=== PATIENT | male | born 1965 | race African-American/Black ===

== ENCOUNTER 2019-05-07 08:47 | Emergency (ER) | payer BC, OTHER, SELFPAY ==
[2019-05-07 09:06] LABS: #Eosinphils 0.1 thou/uL (0.0-0.7); #Lymphocytes 2.2 thou/uL (1.20-3.40); #Monocytes 0.5 thou/uL (0.11-0.59); #Neutrophils 4.2 thou/uL (1.40-6.50); %Basophils 0.4 % (0.0-1.0); %Eosinophils 2.1 % (0.0-10.0); %Lymphocytes 31.4 % (21.0-51.0); %Monocytes 7.2 % (0.0-10.0); %Neutrophils 58.9 % (42.0-75.0); Hemoglobin 15.2 g/dL (14.0-18.0); Mean Corpuscular HGB CONC 33.3 g/dL (32.0-36.0); Mean Corpuscular Hemoglobin 28.8 pg (27.0-31.0); Mean Corpuscular Volume 86.5 fL (78.0-98.0); Mean Platelet Volume 7.7 fL (7.4-10.4); Platelet Count 187 thou/uL (130-400); RBC Distribution Width 12.4 % (11.5-14.5); White Blood Cell (WBC) Count 7.1 thou/uL (4.8-10.8)
[2019-05-07 09:27] LABS: ALT (SGPT) 24 U/L (8-55); AST (SGOT) 22 U/L (5-34); Albumin 4.7 g/dL (3.5-5.0); Alkaline Phosphatase 65 U/L (40-150); Anion Gap 14 mmol/L (10-20); BUN (Urea Nitrogen) 11 mg/dL (8.4-25.7); Bilirubin, Total 0.6 mg/dL (0.2-1.2); Calc. Creatinine Clearance 0 mL/min (70-130); Calcium 10.1 mg/dL (7.8-10.44); Carbon Dioxide 27 mmol/L (22-29); Chloride 104 mmol/L (98-107); Estimated GFR-MDRD Greater than 90; Globulin 3.1 g/dL (2.4-3.5); Glucose 97 mg/dL (70-105); Potassium 3.9 mmol/L (3.5-5.1); Protein, Total 7.8 g/dL (6.0-8.3); Sodium 141 mmol/L (136-145)
--- NOTE | 2019-05-07 09:39 | CT ---
CT Brain WO Con: 05/07/2019 9:15 AM CLINICAL HISTORY: History of headache. IMAGING TECHNIQUE: Multiple CT images were obtained of the brain without IV contrast. COMPARISON: None. FINDINGS: Infarct: No acute infarct evident. Hemorrhage: None.. Hydrocephalus: None.. Basal cisterns: Normal.. Cerebral parenchyma: Normal.. Midline shift: None.. Cerebellum: Normal. Brainstem: Normal. OTHER: Calvarium: Intact.. Visualized Paranasal sinuses: Clear.. Extracranial soft tissues:Normal. IMPRESSION: No acute intracranial abnormality.
--- NOTE | 2019-05-07 09:44 | CT ---
CTA of the chest and abdomen utilizing an aortic dissection protocol and 3-D reformatted imaging INDICATION: Chest pain, hypertension and vomiting COMPARISON: None FINDINGS: Aorta: No hemodynamically significant stenosis, occlusion or aneurysmal formation is evident. The keith iac, SMA and renal arteries are widely patent. The EDUARDO is patent. The common iliac arteries are patent. 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 Central pulmonary artery: No central pulmonary embolus demonstrated. Additional thorax findings: There is a 6.5 mm pulmonary nodule within the posterior right lower lobe on image 85 of series 2. Additional abdominal findings: There is fatty infiltration of the liver. The pancreas, adrenal glands and kidneys are normal appearing. The spleen is normal-appearing. No free fluid or enlarged lymph nodes are evident. Osseous structures: No acute fracture or subluxation demonstrated. There is scattered degenerative an d osteoarthritic change present. IMPRESSION: 1. No appreciable aortic stenosis, occlusion or aneurysmal formation demonstrated. 2. 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 3. Right lower lobe pulmonary nodule. Follow-up CT evaluation in 3-6 months is recommended to documen t stability. 4. Fatty liver
--- NOTE | 2019-05-07 09:44 | RAD ---
PORTABLE CHEST 1 VIEW: Date: 05/07/19 Time: 0845 hours HISTORY: Chest pain. FINDINGS: The heart size is normal. The lungs are expanded without focal areas of consolidation, pneumothoraces , or pleural effusions. IMPRESSION: No radiographic evidence of acute cardiopulmonary process. POS: [facility]
[2019-05-07] MEDS ORDERED: Acetaminophen 500 MG TAB ONE (10:07)
[2019-05-07] MEDS ORDERED: diphenhydrAMINE 50 MG/ML VIAL ONE (10:07)
[2019-05-07] MEDS ORDERED: Aspirin Chewable 81 MG TAB ONE (10:07)
[2019-05-07] MEDS ORDERED: Metoclopramide HCl 10 MG/2 ML VIAL ONE (10:07)
[2019-05-07] MEDS ORDERED: Nitroglycerin 2% Ointment 1 INCH/1 GM Packet ONE (10:08)
[2019-05-07] MEDS ORDERED: Nitroglycerin 0.4 MG TAB 1 EACH ONE (10:08)
[2019-05-07 12:39] LABS: Troponin I Less than 0.010 ng/mL (< 0.028)
== END 2019-05-07 13:23 | disposition home or self-care (01) ==
LOC: ERS 08:47
DX: R07.89 Other chest pain (principal); R51 Headache; E78.5 Hyperlipidemia, unspecified; I10 Essential (primary) hypertension; F17.210 Nicotine dependence, cigarettes, uncomplicated
CPT/HCPCS: 36415; 70450; 71045; 71275; 80053; 84484; 85025; 93005; 96365; 96366; 96375; J1200; J2765

== ENCOUNTER 2021-10-27 11:06 | Emergency (ER) | payer BC ==
[2021-10-27] MEDS ORDERED: Xylocaine 1% w/ Epi 1:100K 10 ML VIAL ONE (11:38)
[2021-10-27] MEDS ORDERED: Ketorolac Tromethamine 30 MG/ML VIAL ONE (11:38)
[2021-10-27 12:04] LABS: #Eosinphils 0.1 thou/uL (0.0-0.7); #Lymphocytes 1.8 thou/uL (1.20-3.40); #Monocytes 0.9 thou/uL (0.11-0.59); #Neutrophils 7.8 thou/uL (1.40-6.50); %Basophils 0.1 % (0.0-1.0); %Eosinophils 0.6 % (0.0-10.0); %Lymphocytes 16.6 % (21.0-51.0); %Monocytes 8.8 % (0.0-10.0); %Neutrophils 73.9 % (42.0-75.0); Hemoglobin 13.8 g/dL (14.0-18.0); Mean Corpuscular HGB CONC 31.8 g/dL (32.0-36.0); Mean Platelet Volume 8.1 fL (7.4-10.4); Platelet Count 168 thou/uL (130-400); RBC Distribution Width 12.3 % (11.5-14.5); Red Blood Cell (RBC) Count 4.92 mill/uL (4.70-6.10); White Blood Cell (WBC) Count 10.5 thou/uL (4.8-10.8)
[2021-10-27 12:19] LABS: Anion Gap 11 mmol/L (10-20); BUN (Urea Nitrogen) 8 mg/dL (8.4-25.7); CRP (Inflammatory) 5.73 mg/dL (= or < 0.5); Calc. Creatinine Clearance 0 mL/min (70-130); Calcium 9.4 mg/dL (7.8-10.44); Carbon Dioxide 27 mmol/L (22-29); Chloride 105 mmol/L (98-107); Glucose 100 mg/dL (70-105); Potassium 4.1 mmol/L (3.5-5.1); Sodium 139 mmol/L (136-145)
[2021-10-27 13:32] LABS: RBC Count-Automated (BF) 52525 /cu.mm; WBC/Nucleated-Auto (BF) 19240 /cu.mm
[2021-10-27 14:05] LABS: BF Color Red; Body Fluid Source Synovial Fluid; Clarity Cloudy/Turbid (Clear); Tube # EDTA
[2021-10-27 14:07] LABS: BF Segmented Neutrophils 81 %; Cell Count Non Hematic 16 %; Lymphocytes 3 %
== END 2021-10-27 14:36 | disposition home or self-care (01) ==
LOC: ERS 11:06
DX: M10.061 Idiopathic gout, right knee (principal); I10 Essential (primary) hypertension; E78.5 Hyperlipidemia, unspecified
CPT/HCPCS: 20610; 36415; 80048; 82945; 85025; 85060; 85652; 86140; 87070; 87205; 89051; 89060; 96372; J1885

== ENCOUNTER 2022-10-26 12:28 | Day surgery (SDC) | payer OTHER, BC ==
[2022-10-26] MEDS ORDERED: CEFAZOLIN 2 GM VIAL ONE (12:44)
[2022-10-26] MEDS ORDERED: HYDROmorphone 0.5 MG/0.5 ML SYRINGE ONE ×2 (12:44→14:21)
[2022-10-26] MEDS ORDERED: Ketorolac Tromethamine 30 MG/ML VIAL ONE (12:51)
[2022-10-26] MEDS ORDERED: Boostrix 0.5 ML (Tdap) VIAL (>/=7 yrs of age) ONE (12:51)
[2022-10-26] MEDS ORDERED: Ondansetron PF 4 MG/2 ML Vial ONE ×2 (12:51→15:42)
[2022-10-26 13:00] LABS: Hemoglobin 13.7 g/dL (14.0-18.0); Mean Corpuscular HGB CONC 32.6 g/dL (32.0-36.0); Mean Corpuscular Hemoglobin 28.6 pg (27.0-31.0); Mean Corpuscular Volume 87.8 fl (78.0-98.0); Mean Platelet Volume 7.9 fL (7.4-10.4); Platelet Count 192 10x3/uL (130-400); RBC Distribution Width 12.4 % (11.5-14.5)
[2022-10-26 13:19] LABS: Eosinophils 3 % (0-10); Lymphocytes 33 % (21-51); MDiff Complete? YES; Monocytes 12 % (0-10); Neutrophil 35 % (42-75); Platelet Morphology Comment Appears Adequate; RBC Morphology Normal; Reactive Lymphocytes 17 % (0-10)
[2022-10-26 13:22] LABS: ALT (SGPT) 13 U/L (8-55); AST (SGOT) 18 U/L (5-34); Albumin 4.2 g/dL (3.5-5.0); Alkaline Phosphatase 60 U/L (40-110); Anion Gap 15 mmol/L (10-20); BUN (Urea Nitrogen) 12 mg/dL (8.4-25.7); Bilirubin, Total 0.4 mg/dL (0.2-1.2); Calc. Creatinine Clearance 0 mL/min (70-130); Calcium 8.8 mg/dL (7.8-10.44); Carbon Dioxide 22 mmol/L (22-29); Chloride 107 mmol/L (98-107); Estimated GFR 102; Globulin 2.9 g/dL (2.4-3.5); Glucose 111 mg/dL (70-105); Potassium 3.5 mmol/L (3.5-5.1); Protein, Total 7.1 g/dL (6.0-8.3); Sodium 140 mmol/L (136-145)
[2022-10-26] MEDS ORDERED: Fentanyl 250 MCG/5 ML VIAL ONE (15:28)
[2022-10-26] MEDS ORDERED: Midazolam HCl 2 mg/2 ml Vial ONE (15:37)
[2022-10-26] MEDS ORDERED: Triamcinolone 40 MG/ML VIAL ONE (15:42)
[2022-10-26] MEDS ORDERED: Dexamethasone 20 MG/5 ML VIAL ONE (15:42)
[2022-10-26] MEDS ORDERED: Lidocaine 1% PF 5 ML VIAL ONE (15:42)
[2022-10-26] MEDS ORDERED: NEOSTIGMINE 3 MG/3 ML SYR 3 MG/3 ML SYRINGE ONE (15:42)
[2022-10-26] MEDS ORDERED: Bupivacaine 0.75% 10 ML VIAL ONE (15:42)
[2022-10-26] MEDS ORDERED: PROPOFOL 200 MG/20 ML VIAL ONE (15:42)
[2022-10-26] MEDS ORDERED: Glycopyrrolate 0.2 MG/ML 5 ML SYRINGE ONE (15:42)
[2022-10-26] MEDS ORDERED: Maxitrol 0.1% Opth Oint 3.5 GM TUBE ONE (15:42)
[2022-10-26] MEDS ORDERED: Atropine Sulfate 1% Ophth Ointment 3.5 gm Tube ONE (15:42)
[2022-10-26] MEDS ORDERED: CEFAZOLIN 1 GM VIAL ONE (15:42)
[2022-10-26] MEDS ORDERED: Lidocaine 4% PF 5 ML AMP ONE (15:42)
[2022-10-26] MEDS ORDERED: Rocuronium Bromide 10 MG/ML (10ML VIAL) ONE (15:42)
[2022-10-26] MEDS ORDERED: EPINEPHrine 0.3 MG in Ophthalmic Irrigation Solution 500 ML IRR SCH (15:45)
[2022-10-26] MEDS ORDERED: Vancomycin HCl 100 MG, Sodium Chloride 0.9% 10 ML TOP SCH (17:45)
[2022-10-26] MEDS ORDERED: Promethazine HCl 25 MG/ML VIAL IM PRN (19:01)
[2022-10-26] MEDS ORDERED: Ondansetron HCl/PF 4 MG/2 ML Vial IVP PRN (19:01)
[2022-10-26] MEDS ORDERED: Labetalol HCl 100 MG/20 ML VIAL ONE (19:16)
== END 2022-10-26 20:05 | disposition home or self-care (01) ==
LOC: ERS 12:28 → SDC 14:03
PROVIDERS: ATTEND Ophthalmology Retina Specialist
PROC: 08Q6XZZ Repair Right Sclera, External Approach (ICD-10-PCS; principal; 2022-10-26)
PROC: 08Q8XZZ Repair Right Cornea, External Approach (ICD-10-PCS; principal; 2022-10-26)
DX: S05.31XA Ocular laceration without prolapse or loss of intraocular tissue, right eye, initial encounter (principal); E78.5 Hyperlipidemia, unspecified; I10 Essential (primary) hypertension; M10.9 Gout, unspecified; F17.210 Nicotine dependence, cigarettes, uncomplicated; Z91.14 Patient's other noncompliance with medication regimen; V43.92XA Unspecified car occupant injured in collision with other type car in traffic accident, initial encounter
CPT/HCPCS: 70450; 70486; 71045; 72125; 80053; 85025; 90471; 90715; 93005; 96374; 96375; 96376; J0171; J0690; J0713; J1100; J1170; J1885; J2250; J2405; J2704; J3010; J3301; J3371; J3490

== ENCOUNTER 2024-10-16 09:22 | Emergency (ER) | payer BC, SELFPAY ==
[2024-10-16] MEDS ORDERED: Lidocaine 1% w/Epinephrine 1:100K 20 ML VIAL ONE (09:48)
[2024-10-16] MEDS ORDERED: Dexamethasone 10 MG/ML VIAL ONE (10:27)
[2024-10-16] MEDS ORDERED: Ketorolac Tromethamine 30 MG (1 mL) VIAL ONE (10:27)
[2024-10-16 11:30] LABS: RBC Count-Automated (BF) 845 /cu.mm; Tube # EDTA; WBC/Nucleated-Auto (BF) 35439 /cu.mm
[2024-10-16 11:31] LABS: BF Color Yellow; Clarity Hazy (Clear)
[2024-10-16 12:23] LABS: BF Segmented Neutrophils 92 %; Cell Count Non Hematic 7 %; Lymphocytes 1 %
== END 2024-10-16 12:48 | disposition home or self-care (01) ==
LOC: ERS 09:22
DX: M10.9 Gout, unspecified (principal); M70.42 Prepatellar bursitis, left knee; I10 Essential (primary) hypertension; F17.210 Nicotine dependence, cigarettes, uncomplicated
CPT/HCPCS: 85060; 89051; 96372; 99283; J1100; J1885